=== PATIENT | female | born 1980 | race Caucasian/White ===

== ENCOUNTER 2020-01-17 06:11 | Emergency (ER) | payer MEDICAID ==
--- NOTE | 2020-01-17 06:32 | EDM.PDOC ---
<OfficerYaniv - Last Filed: 01/17/20 06:47> ED HPI GENERAL MEDICAL PROBLEM - General Chief Complaint: Neurological Problem Stated Complaint: MEDICAL VIA [facility] Time Seen by Provider: 01/17/20 06:26 Source of Information: Reports: Patient, RN Notes Reviewed History Limitations: Reports: No Limitations - History of Present Illness INITIAL COMMENTS - FREE TEXT/NARRATIVE: 39-year-old female presents emergency department today complaint of seizure, she is a 2 para 1 currently at 21 weeks intrauterine no history of seizure disorder no family history of seizure disorder. Per report from he awoke found her convulsing moving both upper and lower extremities while in bed no report on eye-movement. Estimate the event lasted about 5 minutes EMS services were called for transport to the ED she was confused after the event. At this time she states she feels a little foggy and it is hard for her to concentrate she has felt baby move. No vaginal bleeding or gush of fluid. Uncomplicated thus far no significant past medical history or maternal history during this or prior - Related Data Allergies Allergy/AdvReac Type Severity Reaction Status Date / Time No Known Allergies Allergy Verified 01/17/20 06:28 Home Meds: Home Meds Cyclobenzaprine [Flexeril] 10 mg PO TID PRN 01/17/20 [History] hydrOXYzine HCL [hydrOXYzine] 10 mg PO BEDTIME PRN 01/17/20 [History] Past Medical History Musculoskeletal History: Reports: Back Pain, Chronic Social & Family History - Tobacco Use Smoking Status *Q: Never Smoker ED ROS GENERAL - Review of Systems Review Of Systems: See Below Constitutional: Reports: No Symptoms HEENT: Reports: No Symptoms Respiratory: Reports: No Symptoms Cardiovascular: Reports: No Symptoms GI/Abdominal: Reports: No Symptoms Musculoskeletal: Reports: Back Pain Skin: Reports: No Symptoms Neurological: Reports: Seizure ED EXAM, NEURO - Physical Exam Exam: See Below Text/Narrative:: Bedside ultrasound reveals heart tones around 150 good movement, no abnormality noted Exam Limited By: No Limitations General Appearance: Alert, WD/WN, No Apparent Distress Eye Exam: Bilateral Eye: PERRL Respiratory/Chest: No Respiratory Distress, Lungs Clear, Normal Breath Sounds, No Accessory Muscle Use, Chest Non-Tender Cardiovascular: Regular Rate, Rhythm, No Murmur GI/Abdominal: Soft, Non-Tender Course - Vital Signs Last Recorded V/S: Last Vital Signs Temp 35.9 C L 01/17/20 07:17 Pulse 80 01/17/20 08:52 Resp 12 01/17/20 08:52 BP 103/64 01/17/20 08:52 Pulse Ox 98 01/17/20 08:52 - Orders/Labs/Meds Orders: Active Orders 24 hr Category Date Time Status DRUG SCREEN, URINE [URCHEM] Stat Lab 01/17/20 08:58 Received UA W/MICROSCOPIC [URIN] Urgent Lab 01/17/20 08:58 Received Labs: Laboratory Tests 01/17/20 01/17/20 01/17/20 Range/Units 06:39 06:39 06:39 WBC 14.1 H (4.5-11.0) K/uL RBC 3.68 (3.30-5.50) M/uL Hgb 11.1 L (12.0-15.0) g/dL Hct 34.3 L (36.0-48.0) % MCV 93 (80-98) fL MCH 30 (27-31) pg MCHC 32 (32-36) % Plt Count 301 (150-400) K/uL Neut % (Auto) 73 H (36-66) % Lymph % (Auto) 19 L (24-44) % [place] % (Auto) 7 H (2-6) % Eos % (Auto) 2 (2-4) % Baso % (Auto) 0 (0-1) % Sodium 139 L (140-148) mmol/L Potassium 3.8 (3.6-5.2) mmol/L Chloride 105 (100-108) mmol/L Carbon Dioxide 28 (21-32) mmol/L Anion Gap 9.8 (5.0-14.0) mmol/L BUN 10 (7-18) mg/dL Creatinine 0.7 (0.6-1.0) mg/dL Est Cr Clr Drug Dosing TNP Estimated GFR (MDRD) > 60 (>60) Glucose 94 (74-106) mg/dL Lactic Acid 1.4 (0.4-2.0) mmol/L Calcium 8.1 L (8.5-10.1) mg/dL Total Bilirubin 0.3 (0.2-1.0) mg/dL AST 13 L (15-37) U/L ALT 20 (12-78) U/L Alkaline Phosphatase 62 (46-116) U/L Total Protein 5.8 L (6.4-8.2) g/dL Albumin 2.5 L (3.4-5.0) g/dL Globulin 3.3 (2.3-3.5) g/dL Albumin/Globulin Ratio 0.8 L (1.2-2.2) Meds: Medications Discontinued Medications Generic Name Dose Route Start Last Admin Trade Name Victor Hugo PRN Reason Stop Dose Admin Lorazepam Confirm 01/17/20 06:41 01/17/20 06:49 Ativan Administered 01/17/20 06:42 Not Given Dose 4 mg .ROUTE .STK-MED ONE Lorazepam 2 mg 01/17/20 06:49 01/17/20 07:05 Ativan IVPUSH 01/17/20 06:50 2 mg ONETIME ONE Administration - Re-Assessments/Exams Free Text/Narrative Re-Assessment/Exam: 01/17/20 06:40 She did have a seizure like event while in the emergency department consistent with a tonic-clonic type activity upper and lower extremities eyes rolled into the back of the head eyes were open event lasted about 90 seconds, was a period of confusion 2 mg Ativan provided post ictal. She did bite the tip of her tongue during this event 01/17/20 06:47 Departure - Departure Disposition: DC/Tfer to [facility] Clinical Impression: 21 weeks gestation of , Seizure disorder during - Discharge Information Referrals: PCP,None [Primary Care Provider] - Forms: ED Department Discharge Care Plan Goals: transfer to ER at [facility]. Sepsis Event Note (ED) - Focused Exam Vital Signs: Vital Signs Temp Pulse Resp BP Pulse Ox 01/17/20 08:52 80 12 103/64 98 01/17/20 08:05 95 18 91/54 L 96 01/17/20 07:17 35.9 C L 91 16 121/76 95 01/17/20 06:47 105 H 125/77 01/17/20 06:41 107 H 140/72 01/17/20 06:39 103 H 162/86 H 01/17/20 06:15 35.9 C L 91 16 121/76 95 <Poonam Quiñones - Last Filed: 01/17/20 09:07> Course - Re-Assessments/Exams Free Text/Narrative Re-Assessment/Exam: 01/17/20 09:03 pt was given atvan after the second seizure. She did have a cat scan of the head which was neg. Her lab work was normal. She has been stable excpt her last bp has been in the 88 systolic range. Fluids at 250 are running. Departure - Departure Time of Disposition: 09:06 Condition: Fair
[2020-01-17] MEDS ORDERED: LORazepam 2 MG/ML SDV ONE (06:41)
[2020-01-17] MEDS ORDERED: LORazepam 2 MG/ML SDV IVPUSH ONE (06:49)
--- NOTE | 2020-01-17 08:29 | CRLCT ---
INDICATION: First-time seizure. Twenty-one weeks . TECHNIQUE: Noncontrast CT images were obtained through the brain. COMPARISON: None. FINDINGS: The ventricles and sulci are within normal limits for patient age. No mass effect or midline shift. The fulton-white differentiation is maintained. No acute intracranial hemorrhage or pathologic extra-axial fluid collection. The globes are symmetric in size. The calvarium is intact. The visualized paranasal sinuses and mastoid air cells are clear. IMPRESSION: No acute intracranial hemorrhage or mass effect. Please note that all CT scans at this facility use dose modulation, iterative reconstruction, and/or weight-based dosing when appropriate to reduce radiation dose to as low as reasonably achievable. Dictated by Ismael Chun MD @ Jan 17 2020 8:24AM Signed by Dr. Ismael Chun @ Jan 17 2020 8:28AM
[2020-01-17] MEDS ORDERED: Acetaminophen 325 MG Tab PO ONE (10:12)
== END 2020-01-17 11:27 ==
LOC: JP.ED 06:11
DX: O99.352 Diseases of the nervous system complicating pregnancy, second trimester (principal); G40.909 Epilepsy, unspecified, not intractable, without status epilepticus; Z3A.21 21 weeks gestation of pregnancy; Z79.899 Other long term (current) drug therapy
CPT/HCPCS: 36415; 70450; 80053; 80305; 81001; 83605; 85025; 96374; 99285; A9270; J2060

== ENCOUNTER 2022-09-07 09:02 | Inpatient (IN) | payer MEDICAID ==
[2022-09-07] MEDS ORDERED: fentaNYL 100 MCG/2 ML SDV ONE ×2 (09:18→09:43)
[2022-09-07] MEDS ORDERED: Oxytocin 10 Units/1 ML SDV ONE (09:20)
[2022-09-07] MEDS ORDERED: Methylergonovine 0.2 MG/1 ML Amp IM PRN (10:05)
[2022-09-07] MEDS ORDERED: Ibuprofen 600 MG Tab PO PRN (10:13)
[2022-09-07] MEDS ORDERED: Acetaminophen/HYDROcodone 325-5 MG Tab PO PRN (10:14)
[2022-09-07] MEDS ORDERED: Docusate Sodium 100 MG Cap PO PRN (10:14)
[2022-09-07] MEDS ORDERED: Acetaminophen 325 MG Tab PO PRN (10:14)
[2022-09-07] MEDS ORDERED: Sodium Chloride 0.9% 10 ML Syringe FLUSH PRN (10:15)
[2022-09-07] MEDS ORDERED: Oxytocin 10 Units/1 ML SDV IM PRN (10:15)
[2022-09-07] MEDS ORDERED: Acetaminophen/HYDROcodone 325-10 MG Tab PO ONE (10:43)
[2022-09-08] MEDS ORDERED: Prenatal Multivitamin with Calcium/Folic Acid/Iron Tab PO SCH (09:00)
== END 2022-09-07 13:15 | DRG 806 ==
LOC: JP.OBCHECK 09:02 → JP.OB 09:11 → JP.OBCHECK 09:33
PROVIDERS: ADMIT Family Medicine; ATTEND Family Medicine
PROC: 10E0XZZ Delivery of Products of Conception, External Approach (ICD-10-PCS; principal; 2022-09-07)
DX: O60.14X0 Preterm labor third trimester with preterm delivery third trimester, not applicable or unspecified (principal); Z37.0 Single live birth; Z3A.36 36 weeks gestation of pregnancy; O99.324 Drug use complicating childbirth; F11.90 Opioid use, unspecified, uncomplicated; O24.425 Gestational diabetes mellitus in childbirth, controlled by oral hypoglycemic drugs; O69.81X0 Labor and delivery complicated by cord around neck, without compression, not applicable or unspecified
CPT/HCPCS: 82947; 99211; A9270-GY; J2590; J3010

== ENCOUNTER 2024-01-19 10:14 | Emergency (ER) | payer MEDICAID | END 2024-01-19 10:59 | disposition home or self-care (01) | LOC: JP.ED 10:14 | DX: A69.20 Lyme disease, unspecified (principal) | CPT/HCPCS: 99281; 99283 ==